=== PATIENT | female | born 1960 | race African-American/Black ===

== ENCOUNTER → 2020-11-24 | Day surgery (SDC) | payer MEDICARE ==
[~2020-11-24] MED LIST: FOSINOPRIL SODI20 MG PO; LASIX20 MG PO; LEVOTHYROXINE25 MCG PO; PERCOCET 5-3251 EACH PO; WARFARIN SODIUM5 MG PO
[2020-11-24 07:04] LABS: HCT 37.6 % (37.0-47.0); HGB 11.9 g/dl (12.5-16.0); MCH 29.5 pg (25.0-31.0); MCHC 31.6 g/dL (32.0-36.0); MCV 93.3 fL (78.0-100.0); MPV 10.2 fL (6.0-9.5); RBC 4.03 M/uL (4.20-5.40); WBC 9.8 K/uL (4.0-10.5)
[2020-11-24 07:55] LABS: ALBUMIN 2.8 g/dL (3.4-5.0); BILIRUBIN - TOTAL 0.4 mg/dL (0.2-1.0); BUN/CREAT RATIO (CALC) 15.6 RATIO; CREATININE 0.64 mg/dL (0.51-0.95); GLOBULIN (CALCULATION) 4.5 g/dL; POTASSIUM 3.2 mmol/L (3.5-5.1); TOTAL PROTEIN 7.3 g/dL (6.4-8.2)
== END | disposition home or self-care (01) ==
LOC: FAS 06:05
PROVIDERS: Nurse Anesthetist, Certified Registered; Orthopaedic Surgery
DX: S83.242A Other tear of medial meniscus, current injury, left knee, initial encounter (principal); M25.862 Other specified joint disorders, left knee; M79.4 Hypertrophy of (infrapatellar) fat pad; M17.12 Unilateral primary osteoarthritis, left knee; I10 Essential (primary) hypertension; E03.9 Hypothyroidism, unspecified; M71.22 Synovial cyst of popliteal space [Baker], left knee; Z79.01 Long term (current) use of anticoagulants; X58.XXXA Exposure to other specified factors, initial encounter; Z88.5 Allergy status to narcotic agent; Z86.718 Personal history of other venous thrombosis and embolism
CPT/HCPCS: 36415; 71045; 80053; 93005; J2250; J2405; J2550; J2704; J3010; J7120